=== PATIENT | female | born 1985 | race Caucasian/White ===

== ENCOUNTER → 2020-07-21 | Outpatient (CLI) | payer BC ==
[~2020-07-21] MED LIST: CYCLOBENZAPRINE10 MG PO
== END ==
LOC: HEART CORB 07-05 13:30
DX: R07.9 Chest pain, unspecified (principal); R94.31 Abnormal electrocardiogram [ECG] [EKG]; R06.02 Shortness of breath; I49.3 Ventricular premature depolarization; I08.3 Combined rheumatic disorders of mitral, aortic and tricuspid valves
CPT/HCPCS: 93306

== ENCOUNTER → 2020-08-11 | Outpatient (CLI) | payer BC | LOC: HEART CORB 09:39 | DX: I49.3 Ventricular premature depolarization (principal) ==

== ENCOUNTER 2020-09-08 19:41 | Emergency (ER) | payer BC ==
[2020-09-08] MEDS ORDERED: CYCLOBENZAPRINE10 MG PO (23:31)
== END 2020-09-09 | disposition home or self-care (01) ==
LOC: ER1 19:41
DX: S16.1XXA Strain of muscle, fascia and tendon at neck level, initial encounter (principal); S46.912A Strain of unspecified muscle, fascia and tendon at shoulder and upper arm level, left arm, initial encounter; I48.91 Unspecified atrial fibrillation; Z90.49 Acquired absence of other specified parts of digestive tract; Z90.710 Acquired absence of both cervix and uterus; Z88.0 Allergy status to penicillin; Z88.5 Allergy status to narcotic agent; Z79.899 Other long term (current) drug therapy; X58.XXXA Exposure to other specified factors, initial encounter
CPT/HCPCS: 93005; 96374; 99283; J1885